=== PATIENT | male | born 1955 | race Caucasian/White ===

== ENCOUNTER 2020-01-27 16:29 | Inpatient (IN) | payer MEDICARE ==
[~2020-01-27] VITALS: Ht 170.2 cm; Wt 121.6 kg
[2020-01-27] VITALS (14 sets, daily range): BP systolic 119–151; BP diastolic 52–83; BMI 42.2
[2020-01-27] MEDS ORDERED: ULTRAM50 MG PO (16:45)
[2020-01-27] MEDS ORDERED: HYDROCODON-ACE1 EAC2 PO (16:45)
[2020-01-27] MEDS ORDERED: LIPITOR20 MG PO (16:45)
[2020-01-27] MEDS ORDERED: ZYLOPRIM300 MG PO (16:46)
[2020-01-27] MEDS ORDERED: NORVASC10 MG PO (16:46)
[2020-01-27] MEDS ORDERED: LISINOPRIL40 MG (16:46)
[2020-01-27] MEDS ORDERED: TOPROL XL25 MG (16:46)
[2020-01-27] MEDS ORDERED: FLOMAX0.4 MG PO (16:47)
[2020-01-27 16:54] LABS: BASOPHILS 0.6 % (0-2); EOSINOPHILS 3.2 % (0-7); HEMATOCRIT 47.3 % (42.0-54.0); HEMOGLOBIN 15.4 g/dL (13.5-17.5); IMMATURE GRANULOCYTES 0.8 % (0-5); LYMPHOCYTES 29.6 % (15-50); MCH 29.5 pg (26.0-34.0); MCHC 32.6 g/dL (31.0-37.0); MCV 90.6 fL (80.0-100.0); MEAN PLATELET VOLUME 9.2 fL (7.4-10.4); MONOCYTES 9.5 % (2-11); NEUTROPHILS 56.3 % (40-80); PLATELET COUNT 290 10x3/uL (130-400); RBC 5.22 10x6/uL (4.20-6.10); RDW 13.7 % (11.5-14.5); WBC 8.5 10x3/uL (4.8-10.8)
[2020-01-27 17:04] LABS: APTT 31.2 SECONDS (22.8-39.4); CALC OSMOLALITY 276 mosm/kg (275-300); CALCIUM 9.2 mg/dL (8.5-10.1); CARBON DIOXIDE 22.5 mmol/L (21.0-32.0); CHLORIDE - SERUM 103 mmol/L (98-107); CREATININE - SERUM 1.1 mg/dL (0.6-1.3); GLUCOSE 97 mg/dL (74-106); INR 0.97 (0.85-1.17); PROTIME 12.8 SECONDS (11.6-15.0); SODIUM 138 mmol/L (136-145); UREA NITROGEN 14 mg/dL (7-18); eGFR NON AFRICAN AMERICAN 72 mL/min (90-120)
[2020-01-27 17:19] LABS: ALBUMIN 3.9 g/dL (3.4-5.0); ALKALINE PHOSPHATASE 63 U/L (30-120); ALT (SGPT) 44 U/L (10-68); BILIRUBIN - TOTAL 0.42 mg/dL (0.2-1.3); CKMB 11.6 U/L (0.0-3.6); CREATINE KINASE 478 UL (21-232); PROTEIN - SERUM 7.5 g/dL (6.4-8.2)
[2020-01-27 17:28] LABS: TROPONIN-I < 0.017 ng/mL (0.000-0.060)
--- NOTE | 2020-01-27 19:12 | NUR ---
TELENEURO ONLINE AT 1723. TPA RECOMMENDED AT 1734. BOLUS GIVEN AT 1736 AND INFUSION STARTED AT 1738. SEE EMAR.
--- NOTE | 2020-01-27 19:30 | NUR ---
REC'D PT FROM ER PT AWAKE AND ALERT, STEADY GAIT, NO FACIAL DROOPING, SLIGHT LEFT HAND WEAKNESS NOTED. CALL LIGHT WITHIN REACH, WILL CONTINUE TO OBSERVE.
--- NOTE | 2020-01-27 21:00 | NUR ---
NEURO CHECKS COMPLETED. PT AWAKE AND ALERT, LEFT SIDED WEAKNESS IMPROVING, MONITORS ON AND WORKING, VITALS STABLE. CALL LIGHT WITHIN REACH, WILL CONTINUE TO OBSERVE.
--- NOTE | 2020-01-27 23:00 | NUR ---
PT LYING IN BED RESTING, MONITORS ON AND WORKING, PT UP TO BATHROOM WITH MINIMAL ASSIST. VITALS STABLE, LEFT HAND IMPROVING. SEE FLOW SHEET FOR FURTHER DETAILS. WILL CONTINUE TO OBSERVE.
[2020-01-28] VITALS (24 sets, daily range): BP systolic 122–169; BP diastolic 63–96; Ht 170.2 cm; Wt 121.6 kg
[2020-01-28 00:45] LABS: CKMB 12.5 U/L (0.0-3.6); CREATINE KINASE 425 UL (21-232); MAGNESIUM - SERUM 1.8 mg/dL (1.8-2.4); PHOSPHOROUS 4.1 mg/dL (2.5-4.9)
[2020-01-28 00:58] LABS: TROPONIN-I < 0.017 ng/mL (0.000-0.060)
--- NOTE | 2020-01-28 01:00 | NUR ---
PT LYING IN BED RESTING, MONITORS ON AND WORKING, PT AAO. NO SIGNS/SYMPTOMS PF PAIN OR DISCOMFORT NOTED. CALL LIGHT WITHIN REACH, WILL CONTINUE TO OBSERVE.
[2020-01-28 05:56] LABS: BASOPHILS 0.3 % (0-2); EOSINOPHILS 4.5 % (0-7); HEMATOCRIT 48.8 % (42.0-54.0); HEMOGLOBIN 15.7 g/dL (13.5-17.5); IMMATURE GRANULOCYTES 0.6 % (0-5); LYMPHOCYTES 12.7 % (15-50); MCH 29.8 pg (26.0-34.0); MCHC 32.2 g/dL (31.0-37.0); MEAN PLATELET VOLUME 9.2 fL (7.4-10.4); MONOCYTES 5.4 % (2-11); NEUTROPHILS 76.5 % (40-80); PLATELET COUNT 253 10x3/uL (130-400); RBC 5.26 10x6/uL (4.20-6.10); RDW 13.9 % (11.5-14.5)
[2020-01-28 06:09] LABS: APTT 30.3 SECONDS (22.8-39.4); INR 1.04 (0.85-1.17); PROTIME 13.5 SECONDS (11.6-15.0)
[2020-01-28 06:20] LABS: MCV 92.8 fL (80.0-100.0); WBC 6.3 10x3/uL (4.8-10.8)
[2020-01-28 06:42] LABS: ALBUMIN 3.3 g/dL (3.4-5.0); ALKALINE PHOSPHATASE 56 U/L (30-120); ALT (SGPT) 46 U/L (10-68); BILIRUBIN - TOTAL 0.75 mg/dL (0.2-1.3); CALC OSMOLALITY 278 mosm/kg (275-300); CALCIUM 8.4 mg/dL (8.5-10.1); CARBON DIOXIDE 25.5 mmol/L (21.0-32.0); CHLORIDE - SERUM 105 mmol/L (98-107); CHOL - HDL RATIO 3.7 ratio (2.3-4.9); CHOLESTEROL, TOTAL 114 mg/dL (0-200); CKMB 9.7 U/L (0.0-3.6); CREATINE KINASE 335 UL (21-232); GLUCOSE 117 mg/dL (74-106); HDL CHOLESTEROL 31 mg/dL (32-96); LDL CHOLESTEROL 51 mg/dL (0-100); LDL-HDL RATIO 1.6 ratio (1.5-3.5); POTASSIUM - SERUM 4.3 mmol/L (3.5-5.1); PRO BNP 41 pg/mL (0-125); PROTEIN - SERUM 6.6 g/dL (6.4-8.2); SODIUM 139 mmol/L (136-145); TRIGLYCERIDE 161 mg/dL (30-200); UREA NITROGEN 12 mg/dL (7-18)
[2020-01-28 06:43] LABS: CREATININE - SERUM 0.8 mg/dL (0.6-1.3); TROPONIN-I < 0.017 ng/mL (0.000-0.060); eGFR NON AFRICAN AMERICAN > 90 mL/min (90-120)
--- NOTE | 2020-01-28 07:00 | NUR ---
RECEIVED BEDSIDE REPORT ON PATIENT AND ASSUMED CARE OF PATIENT. VSS. PATIENT ALERT AND ORIENTED X 4, STATES LEFT SIDED WEAKNESS HAS RESOLVED EXCEPT FOR HIS LEFT THUMB AND 1ST DIGIT STILL FEEL WEEK, CERTIFIED PHLEBOTOMIST ARE EQUAL AND STRONG, NEURO EXAM COMPLETED. PATIENT HAD VOIDED IN BATHROOM GIVEN URINE COLLECTION BOTTLE TO OBTAIN URINE SPECIMEN. IV INFUSING TO RIGHT HAND NS AT 100 ML/HR WITH NO S/S OF INFILTRATION. HEAD TO TOE ASSESSMENT COMPLETED.
--- NOTE | 2020-01-28 08:41 | NUR ---
DR. READ PAGED TO NOTIFY OF CONSULT. PATIENT RESTING QUIETLY IN BED. VSS.
--- NOTE | 2020-01-28 09:02 | NUR ---
PATIENT UP TO RESTROOM, OBTAINED URINE SAMPLE AND SENT TO LAB. VSS. HAS DIFFICULTY HOLDING ITEMS IN HIS LEFT HAND DUE TO WEAKNESS IN THUMB AND FIRST FINGER.
--- NOTE | 2020-01-28 09:47 | NUR ---
SPOKE TO DR. PEREA, NEUROLOGIST REGARDING CONSULT FOR PATIENT. UPDATED AND ADVISDED HE WOULD SEE PATIENT. LIKELY TO START [place] TOMORROW AM.
--- NOTE | 2020-01-28 10:41 | NUR ---
REHAB PRESCREENING Rehab referral received and chart reviewed. This patient has [facility] as his insurance provider. PT and ST have been ordered. OT will need to be ordered as well. Rehab will begin prior authorization when evaluations have been completed. Thank you for this referral! Orin Mayers, VENDOR MANAGER Rehab PD
--- NOTE | 2020-01-28 11:00 | NUR ---
REASSESSMENT COMPLETED. VSS.
[2020-01-28 11:23] LABS: BILIRUBIN NEGATIVE (NEGATIVE); GLUCOSE NEGATIVE (NEGATIVE); KETONE NEGATIVE (NEGATIVE); NITRITE NEGATIVE (NEGATIVE); UROBILINOGEN NORMAL (NORMAL)
[2020-01-28 11:27] LABS: UDS - AMPHET NEGATIVE QUAL (NEGATIVE); UDS - BARB NEGATIVE QUAL (NEGATIVE); UDS - BENZO NEGATIVE QUAL (NEGATIVE); UDS - COCAINE NEGATIVE QUAL (NEGATIVE); UDS - OPIATE POSITIVE QUAL (NEGATIVE); UDS - PCP NEGATIVE QUAL (NEGATIVE); UDS - THC NEGATIVE QUAL (NEGATIVE)
--- NOTE | 2020-01-28 11:53 | NUR ---
REPORT GIVEN TO HALEIGH RN, TO TRANSFER TO ICU ROOM NUMBER [id number].
--- NOTE | 2020-01-28 11:57 | NUR ---
SPOKE TO DR. PAIGE REGARDING CONSULT. WILL SEE.
--- NOTE | 2020-01-28 13:31 | NUR ---
PATIENT TRANSFERRED TO ROOM 2306 VIA WHEELCHAIR. VSS.
[2020-01-29] VITALS (9 sets, daily range): BP systolic 123–158; BP diastolic 72–96
[2020-01-29 04:30] LABS: BASOPHILS 0.3 % (0-2); EOSINOPHILS 2.6 % (0-7); HEMATOCRIT 49.7 % (42.0-54.0); HEMOGLOBIN 15.7 g/dL (13.5-17.5); LYMPHOCYTES 15.3 % (15-50); MCH 29.3 pg (26.0-34.0); MCHC 31.6 g/dL (31.0-37.0); MCV 92.9 fL (80.0-100.0); MEAN PLATELET VOLUME 9.2 fL (7.4-10.4); MONOCYTES 9.3 % (2-11); NEUTROPHILS 71.5 % (40-80); PLATELET COUNT 252 10x3/uL (130-400); RBC 5.35 10x6/uL (4.20-6.10); RDW 13.5 % (11.5-14.5); WBC 6.8 10x3/uL (4.8-10.8)
[2020-01-29 04:37] LABS: CALC OSMOLALITY 280 mosm/kg (275-300); CALCIUM 8.6 mg/dL (8.5-10.1); CARBON DIOXIDE 29.2 mmol/L (21.0-32.0); CHLORIDE - SERUM 107 mmol/L (98-107); CREATININE - SERUM 0.7 mg/dL (0.6-1.3); GLUCOSE 116 mg/dL (74-106); MAGNESIUM - SERUM 2.1 mg/dL (1.8-2.4); PHOSPHOROUS 3.5 mg/dL (2.5-4.9); POTASSIUM - SERUM 4.1 mmol/L (3.5-5.1); SODIUM 141 mmol/L (136-145); UREA NITROGEN 9 mg/dL (7-18); eGFR NON AFRICAN AMERICAN > 90 mL/min (90-120)
--- NOTE | 2020-01-29 07:00 | NUR ---
REC'D REPORT AND RESUMED CARE, LSLEEPING AROUSABLE TO VERBAL STIMULI, VSS C/O PAIN 8/10 IN BACK, RPOSITIONED UP AND TO RIGHT SIDE, CALL LIGHT IN REACH, ASSESSMENT COMPLETED PER FLOWSHEET, WILL CONTINUE WITH POC
--- NOTE | 2020-01-29 07:45 | NUR ---
BREAKFAST TRAY TO BEDSIDE, INDEPENDENT WITH SET UP AND EATING
--- NOTE | 2020-01-29 09:00 | NUR ---
AM MEDS GIVEN AND TOLERATED WITHOUT DIFFICULTY
[2020-01-29] MEDS ORDERED: PROAIR HFA8.5 G1 INH (09:04)
[2020-01-29] MEDS ORDERED: IPRAT-ALBUT 0.5-3 ML UPD (09:05)
--- NOTE | 2020-01-29 10:05 | NUR ---
REPORT CALLED TO KAMILLE ON MED SURG FOR PENDING TRANSFER TO 2225
--- NOTE | 2020-01-29 13:21 | NUR ---
PT SITTING UP IN CHAIR AT BEDSIDE, STATED A DR CAME IN AND TOLD HIM HE WAS GOOD TO GO, PT WAS LAST SEEN BY DR PAIGE, ADVISED PT HE STLL NEEDS TO SEE DR FITZPATRICK WHO IS THE ADMITTING DR, PT THEN ASKED WHAT WOULD HAPPEN IF HE JUST LEAVES, TOLD PT THAT HE CAN NOT JUS LEAVE AND SHOULD HE LEAVE AMA THAN MOST LIKELY INSURANCE WILL NOT COVER STAY. PT VERBALIZED UNDERSTANDING AND ASKED ME TO SPEED UP PROCESS IF POSSIBLE, NO OTHER NEEDS VOICED, CONTINUE WITH PLAN OF CARE
--- NOTE | 2020-01-30 00:46 | NUR ---
PT RESTING IN BED. EYES CLOSED. NO SIGNS OF DISTRESS. BREATHING EVEN AND UNLABORED. IV SITES LT AND RT HAND DRESSING CLEAN DRY AND INTACT. NO SIGNS OF INFECTION OR INFULTRATION. LUNG SOUNDS CLEAR. BOWEL SOUNDS ACTIVE. SKIN CLEAN DRY. WILL CONTINUE PLAN OF CARE. CALL LGITH IN REACH. BED LOWERED AND LOCKED. BED RAILS UPX2.
[2020-01-30 04:00] VITALS: BP 136/57
--- NOTE | 2020-01-30 04:24 | NUR ---
I have reviewed this patient and I concur with the Shift Assessment completed by the Licensed Practical Nurse today this shift.
[2020-01-30 05:10] LABS: BASOPHILS 0.3 % (0-2); EOSINOPHILS 2.8 % (0-7); HEMATOCRIT 47.7 % (42.0-54.0); HEMOGLOBIN 15.2 g/dL (13.5-17.5); IMMATURE GRANULOCYTES 0.9 % (0-5); LYMPHOCYTES 16.5 % (15-50); MCH 29.3 pg (26.0-34.0); MCHC 31.9 g/dL (31.0-37.0); MCV 92.1 fL (80.0-100.0); MONOCYTES 9.3 % (2-11); NEUTROPHILS 70.2 % (40-80); PLATELET COUNT 245 10x3/uL (130-400); RBC 5.18 10x6/uL (4.20-6.10); RDW 13.6 % (11.5-14.5)
[2020-01-30 05:26] LABS: CALC OSMOLALITY 285 mosm/kg (275-300); CALCIUM 8.5 mg/dL (8.5-10.1); CARBON DIOXIDE 28.2 mmol/L (21.0-32.0); CHLORIDE - SERUM 109 mmol/L (98-107); CREATININE - SERUM 0.8 mg/dL (0.6-1.3); GLUCOSE 131 mg/dL (74-106); MAGNESIUM - SERUM 1.9 mg/dL (1.8-2.4); PHOSPHOROUS 3.6 mg/dL (2.5-4.9); POTASSIUM - SERUM 3.9 mmol/L (3.5-5.1); SODIUM 143 mmol/L (136-145); UREA NITROGEN 10 mg/dL (7-18); eGFR NON AFRICAN AMERICAN > 90 mL/min (90-120)
--- NOTE | 2020-01-30 07:33 | NUR ---
ALERT AND ORIENTED. LUNGS CLEAR BILATERALLY. HEART SOUNDS S1 AND S2 HEARD IN ALL KWAN. BOWEL SOUNDS ACTIVE X 4. SKIN INTACT WITHOUT REDNESS. IV TO RIGHT HAND PATENT WITHOUT REDNESS. O2 IN PLACE AT 2L NC. DENIES NEEDS. CALL LANGSTON AND PERSONAL ITEMS IN REACH. WILL CONTINUE TO MONITOR.
[2020-01-30 09:28] VITALS: BP 139/88
[2020-01-30] MEDS ORDERED: PLAVIX75 MG PO (10:54)
[2020-01-30] MEDS ORDERED: ASPIRIN325 MG PO (10:55)
[2020-01-30] MEDS ORDERED: ZOCOR20 MG PO (10:57)
--- NOTE | 2020-01-30 11:33 | MORECARE ---
CASE MANAGEMENT DISCHARGE SUMMARY PATIENT: MOHIT COHN UNIT: [id number] ADM DATE: 01/27/20 AGE: 65 : 56 SEX: M ROOM/BED: D.2223 AUTHOR: KATHRYN BURNETT PHYSICIAN: REFERRING PHYSICIAN: ANKITA JUAN MD DATE OF SERVICE: 01/30/20 Discharge Plan Patient Name: MOHIT COHN Facility: [facility]:[place] : 1955 Planned Disposition: Anticipated Discharge Date: Discharge Date: Expected LOS: Initial Reviewer: [email or web address] Initial Review Date: 01/30/2020 Generated: 01/30/20 12:33 pm Patient Name: MOHIT COHN Page [id number] at 1133 All edits/amendments must be made on the electronic document DICTATION DATE: 01/30/20 1133 MOLDER SWEEP: ESTEPHANIA 01/30/20 1133 RPT#: [id number] DC DATE: STATUS: ADM IN [facility] [address] [place] [address] END OF REPORT
--- NOTE | 2020-01-30 11:40 | MORECARE ---
CASE MANAGEMENT DISCHARGE SUMMARY PATIENT: MOHIT COHN UNIT: [id number] ADM DATE: 01/27/20 AGE: 65 : 56 SEX: M ROOM/BED: D.2223 AUTHOR: KATHRYN BURNETT PHYSICIAN: REFERRING PHYSICIAN: ANKITA JUAN MD DATE OF SERVICE: 01/30/20 Discharge Plan Patient Name: MOHIT COHN Facility: [facility]:[place] : 1955 Planned Disposition: Anticipated Discharge Date: Discharge Date: Expected LOS: Initial Reviewer: [email or web address] Initial Review Date: 01/30/2020 Generated: 01/30/20 12:40 pm Comments DCP- Discharge Planning Updated by [email or web address]: Michelle Roa on 01/30/20 10:[address] Patient Name: MOHIT COHN Admission Status: ER Accout number: [id number] Admission Date: 01-27-2020 : 1955 Admission Diagnosis:CEREBRAL INFARCTION, UNSPECIFIED Attending: ANKITA JUAN Current LOS: 3 Anticipated DC Date: Planned Disposition: Primary Insurance: [facility] MEDICARE SOLUTIONS Discharge Planning Comments: CM met with patient at bedside after explaining CM role and obtaining verbal consent. CM discussed availability / needs of home health, REHAB and medical equipment.DOES NOT WANT HH, REHAB ETC. PATIENT IS CALLING HIS RIDE TO GO HOME. CM TO FOLLOW AND ASSIST. Nuclear Equipment Sales Engineer: Michelle William DP export: 01/30/20 10:33 am Patient Name: MOHIT COHN Page [id number] at 1140 All edits/amendments must be made on the electronic document DICTATION DATE: 01/30/20 1140 DISTRIBUTION TECHNICIAN: ESTEPHANIA 01/30/20 1140 RPT#: [id number] DC DATE: STATUS: ADM IN [facility] [address] [place] [address] END OF REPORT
--- NOTE | 2020-01-30 11:56 | NUR ---
DISCHARGE EDUCATION PROVIDED BOTH WRITTEN AND VERBAL. VERBALIZED UNDERSTANDING. DENIES FURTHER QUETIONS. IV REMOVED FROM LEFT HAND WITH TIP INTACT. PATIENT DC HOME WITH ALL BELONGINGS.
--- NOTE | 2020-01-30 14:12 | NUR ---
OT NOTE: PT DOING BETTER THEN WHEN LAST SEEN IN CVICU. PTS BALANCE IS GOOD; GROSS AND FINE MOTOR COORDINATION, ALONG WITH BUSINESS INTELLIGENCE ANALYST STRENGHT HAVE IMPROVE. PT CONT TO HAVE SOME NUMBNESS IN L THUMB/INDEX, HOWEVER, TODAY, PT REPORTS THAT THIS IS LONG STANDING FROM A SHOULDER SURGERY FROM APPROX 30 YRS AGO. PT INSTRUCTED TO CONT WITH FINE MOTOR AND FUNCTIONAL TASKS WITH L HAND (NON DOMINANT HAND) FLAKITO LOPEZ, OTR/L [phone]
--- NOTE | 2020-01-31 10:39 | MORECARE ---
CASE MANAGEMENT DISCHARGE SUMMARY PATIENT: MOHIT COHN UNIT: [id number] ADM DATE: 01/27/20 AGE: 65 : 57 SEX: M ROOM/BED: D.2223 AUTHOR: KATHRYN BURNETT PHYSICIAN: REFERRING PHYSICIAN: ANKITA JUAN MD DATE OF SERVICE: 01/31/20 Discharge Plan Patient Name: MOHIT COHN Facility: [facility]:[place] : 1955 Planned Disposition: Anticipated Discharge Date: Discharge Date: 01/30/2020 Expected LOS: 0 Initial Reviewer: [email or web address] Initial Review Date: 01/30/2020 Generated: 01/31/20 11:38 am Comments DCP- Discharge Planning Updated by [email or web address]: Michelle Roa on 01/30/20 10:[address] Patient Name: MOHIT COHN Admission Status: ER Accout number: [id number] Admission Date: 01-27-2020 : 1955 Admission Diagnosis:CEREBRAL INFARCTION, UNSPECIFIED Attending: ANKITA JUAN Current LOS: 3 Anticipated DC Date: Planned Disposition: Primary Insurance: [employer] MEDICARE SOLUTIONS Discharge Planning Comments: CM met with patient at bedside after explaining CM role and obtaining verbal consent. CM discussed availability / needs of home health, REHAB and medical equipment.DOES NOT WANT HH, REHAB ETC. PATIENT IS CALLING HIS RIDE TO GO HOME. CM TO FOLLOW AND ASSIST. Director Nursery School: Michelle Roa Last DP export: 01/30/20 10:40 am Patient Name: MOHIT COHN Page [id number] at 1039 All edits/amendments must be made on the electronic document DICTATION DATE: 01/31/20 1038 MACHINE PULLER: ESTEPHANIA 01/31/20 1038 RPT#: [id number] DC DATE:01/30/20 STATUS: DIS IN [facility] [address] [place] [address] END OF REPORT
== END 2020-01-30 11:58 | disposition home or self-care (01) | DRG 61 ==
LOC: D.ER 16:29 → D.CVICU 19:20 → D.MS 19:20 → D.ICU 19:20 → D.MS 01-29 10:35
PROVIDERS: Family Medicine; ADMIT Internal Medicine Nephrology; ATTEND Internal Medicine Nephrology
DX: I63.9 Cerebral infarction, unspecified (principal); G93.5 Compression of brain; F17.203 Nicotine dependence unspecified, with withdrawal; G81.94 Hemiplegia, unspecified affecting left nondominant side; Z68.41 Body mass index [BMI] 40.0-44.9, adult; J44.9 Chronic obstructive pulmonary disease, unspecified; E11.9 Type 2 diabetes mellitus without complications; I10 Essential (primary) hypertension; E78.5 Hyperlipidemia, unspecified; N40.0 Benign prostatic hyperplasia without lower urinary tract symptoms; G89.29 Other chronic pain; M54.9 Dorsalgia, unspecified; E66.01 Morbid (severe) obesity due to excess calories

== ENCOUNTER 2020-12-16 15:45 | Inpatient (IN) | payer MEDICARE ==
[~2020-12-16] VITALS: Ht 170.2 cm; Wt 110.7 kg
[~2020-12-16 15:45] MED LIST: ASPIRIN325 MG PO; FLOMAX0.4 MG PO; HYDROCODON-ACE1 EAC2 PO; IPRAT-ALBUT 0.5-3 ML UPD; LIPITOR20 MG PO; LISINOPRIL40 MG; NORVASC10 MG PO; PLAVIX75 MG PO; PROAIR HFA8.5 G1 INH; TOPROL XL25 MG; ULTRAM50 MG PO; ZOCOR20 MG PO; ZYLOPRIM300 MG PO
--- NOTE | 2020-12-16 15:45 | NUR ---
PATIENT ARRIVES TO E11 VIA STRETCHER PER EMS. SALINE LOCK INTACT TO LEFT HAND PER EMS. MONITORS ATTACHED. ORIENTED TO CALL LIGHT/TV CONTROLS.
--- NOTE | 2020-12-16 16:15 | NUR ---
PATIENT REQUESTING PAIN MEDICATION FOR BACK PAIN. STATES PARTIALLY FROM CHRONIC PAIN, PARTIALLY FROM SOB. TAKES NORCO 7.5MG AT HOME.
[2020-12-16 16:31] LABS: BASOPHILS 0.5 % (0-2); EOSINOPHILS 0.5 % (0-7); HEMATOCRIT 33.7 % (42.0-54.0); HEMOGLOBIN 10.1 g/dL (13.5-17.5); IMMATURE GRANULOCYTES 0.6 % (0-5); LYMPHOCYTE ABS# 1.25 10x3/uL (1.32-3.57); MCH 22.7 pg (26.0-34.0); MCV 75.7 fL (80.0-100.0); MEAN PLATELET VOLUME 8.2 fL (7.4-10.4); MONOCYTES 10.6 % (2-11); NEUTROPHIL ABS# 7.19 10x3/uL (1.78-5.38); NEUTROPHILS 74.8 % (40-80); RBC 4.45 10x6/uL (4.20-6.10); WBC 9.6 10x3/uL (4.8-10.8)
[2020-12-16 16:32] LABS: PLATELET COUNT 407 10x3/uL (130-400)
--- NOTE | 2020-12-16 16:35 | NUR ---
URINAL GIVEN TO OBTAIN URINE SPECIMEN.
--- NOTE | 2020-12-16 16:40 | NUR ---
AGAIN ASKING FOR PAIN MEDICATION FOR BACK PAIN. REPORTS PAIN IS 5/[address] LINO INFORMED OF PAIN.
[2020-12-16 16:41] LABS: CALC OSMOLALITY 275 mosm/kg (275-300); CALCIUM 8.8 mg/dL (8.5-10.1); CHLORIDE - SERUM 104 mmol/L (98-107); GLUCOSE 155 mg/dL (74-106); POTASSIUM - SERUM 4.5 mmol/L (3.5-5.1); SODIUM 135 mmol/L (136-145); UREA NITROGEN 20 mg/dL (7-18); eGFR NON AFRICAN AMERICAN 80 mL/min (90-120)
[2020-12-16 16:51] LABS: APTT 22.5 SECONDS (22.8-39.4); INR 1.1 (0.85-1.17); PROTIME 13.1 SECONDS (11.6-15.0)
[2020-12-16 16:58] LABS: ALBUMIN 3.3 g/dL (3.4-5.0); ALKALINE PHOSPHATASE 57 U/L (30-120); ALT (SGPT) 33 U/L (10-68); BILIRUBIN - TOTAL 0.23 mg/dL (0.2-1.3); CKMB 21.8 U/L (0.0-3.6); CREATINE KINASE 501 UL (21-232); PRO BNP 116 pg/mL (0-125); PROTEIN - SERUM 7.3 g/dL (6.4-8.2)
[2020-12-16 16:59] LABS: TROPONIN-I < 0.017 ng/mL (0.000-0.060)
--- NOTE | 2020-12-16 17:10 | NUR ---
PATIENT STATES HE IS UNABLE TO VOID AT THIS TIME. DR. LINO TO BEDSIDE.
--- NOTE | 2020-12-16 18:31 | NUR ---
COVID SWAB OBTAINED.
[2020-12-16 19:00] VITALS: BP 145/86
[2020-12-16 19:05] LABS: SARS-CoV-2 ANTIGEN NEGATIVE- SARS-COV-2 (NEGATIVE)
[2020-12-16 20:47] VITALS: BP 144/79
[2020-12-16 21:30] VITALS: BP 140/87
--- NOTE | 2020-12-16 22:01 | NUR ---
RECEIVED REPORT FROM ER. EXPECTING PT IN ROOM 2130 SHORTLY. ER NURSE REPORTS NO DISTRESS, 4L O2 THAT PT WILL TAKE OFF SOMETIMES. PT WILL BE PUI.
[2020-12-16 22:10] LABS: BILIRUBIN NEGATIVE (NEGATIVE); KETONE NEGATIVE (NEGATIVE); NITRITE NEGATIVE (NEGATIVE); UROBILINOGEN NORMAL mg/dL (< 2)
[2020-12-16 22:20] LABS: UDS - AMPHET NEGATIVE QUAL (NEGATIVE); UDS - BARB NEGATIVE QUAL (NEGATIVE); UDS - BENZO NEGATIVE QUAL (NEGATIVE); UDS - COCAINE NEGATIVE QUAL (NEGATIVE); UDS - OPIATE NEGATIVE QUAL (NEGATIVE); UDS - PCP NEGATIVE QUAL (NEGATIVE); UDS - THC NEGATIVE QUAL (NEGATIVE)
[2020-12-16 22:33] VITALS: BP 157/74
[2020-12-17 04:00] VITALS: BP 141/86
--- NOTE | 2020-12-17 05:28 | NUR ---
PT HAD A BOWEL MOVEMENT, A SAMPLE WAS COLLECTED PER ORDERS FOR OCCULT STOOL. STOOL WAS BLACK AND FORMED.
[2020-12-17 05:35] LABS: BASOPHILS 0.2 % (0-2); EOSINOPHILS 0 % (0-7); HEMOGLOBIN 8.6 g/dL (13.5-17.5); IMMATURE GRANULOCYTES 0.4 % (0-5); LYMPHOCYTE ABS# 0.47 10x3/uL (1.32-3.57); MCH 22.7 pg (26.0-34.0); MCHC 29.7 g/dL (31.0-37.0); MCV 76.5 fL (80.0-100.0); MEAN PLATELET VOLUME 8.1 fL (7.4-10.4); MONOCYTES 0.6 % (2-11); NEUTROPHILS 93.8 % (40-80); PLATELET COUNT 401 10x3/uL (130-400); RBC 3.79 10x6/uL (4.20-6.10); RDW 16.8 % (11.5-14.5); RETIC 1.98 % (0.45-2.28); WBC 9.4 10x3/uL (4.8-10.8)
[2020-12-17 05:58] LABS: % SATURATION 10 % (15-55); IRON 42 ug/dl (35-150); TOTAL IRON BIND CAPACITY 385 ug/dl (260-445); UNSAT IRON BIND CAPACITY 343 ug/dl (150-375)
[2020-12-17 06:27] LABS: ALKALINE PHOSPHATASE 50 U/L (30-120); ALT (SGPT) 29 U/L (10-68); BILIRUBIN - TOTAL 0.15 mg/dL (0.2-1.3); CALCIUM 8.2 mg/dL (8.5-10.1); CARBON DIOXIDE 23.4 mmol/L (21.0-32.0); CHLORIDE - SERUM 104 mmol/L (98-107); CKMB 15.7 U/L (0.0-3.6); CREATININE - SERUM 0.9 mg/dL (0.6-1.3); FERRITIN 14 ng/mL (3-244); MAGNESIUM - SERUM 2.1 mg/dL (1.8-2.4); POTASSIUM - SERUM 4.8 mmol/L (3.5-5.1); PROTEIN - SERUM 6.7 g/dL (6.4-8.2); SODIUM 134 mmol/L (136-145); TROPONIN-I < 0.017 ng/mL (0.000-0.060); eGFR NON AFRICAN AMERICAN 90 mL/min (90-120)
[2020-12-17 06:29] LABS: CALC OSMOLALITY 279 mosm/kg (275-300); CREATINE KINASE 340 UL (21-232); GLUCOSE 208 mg/dL (74-106); UREA NITROGEN 29 mg/dL (7-18)
[2020-12-17 09:57] VITALS: BP 162/87
[2020-12-17 13:03] VITALS: BMI 38.2
[2020-12-17 17:28] VITALS: BP 142/83
[2020-12-17 20:27] VITALS: BP 152/79
--- NOTE | 2020-12-17 22:10 | NUR ---
LEFT PIV INFILTRATED NEW PIV PLACED RIGHT FA/AC BY ANOTHER NURSE . PT DENIES ANY NEEDS NO ACUTE DISTRESS WILL CONTINUE TO MONITOR NPO AFTER MN FOR PROCEDURE TOMORROW PT AWARE
[2020-12-18 05:53] LABS: BASOPHILS 0.1 % (0-2); EOSINOPHILS 0 % (0-7); HEMATOCRIT 26.8 % (42.0-54.0); HEMOGLOBIN 7.9 g/dL (13.5-17.5); IMMATURE GRANULOCYTES 0.8 % (0-5); LYMPHOCYTE ABS# 0.66 10x3/uL (1.32-3.57); LYMPHOCYTES 3.5 % (15-50); MCH 22.7 pg (26.0-34.0); MCHC 29.5 g/dL (31.0-37.0); MEAN PLATELET VOLUME 8.4 fL (7.4-10.4); MONOCYTES 2.8 % (2-11); NEUTROPHIL ABS# 17.56 10x3/uL (1.78-5.38); NEUTROPHILS 92.8 % (40-80); PLATELET COUNT 450 10x3/uL (130-400); RBC 3.48 10x6/uL (4.20-6.10); RDW 17.1 % (11.5-14.5)
[2020-12-18 06:20] LABS: WBC 18.9 10x3/uL (4.8-10.8)
[2020-12-18 06:21] LABS: ALBUMIN 2.9 g/dL (3.4-5.0); ALKALINE PHOSPHATASE 47 U/L (30-120); ALT (SGPT) 28 U/L (10-68); BILIRUBIN - TOTAL 0.23 mg/dL (0.2-1.3); CALCIUM 8.4 mg/dL (8.5-10.1); CARBON DIOXIDE 26.3 mmol/L (21.0-32.0); CHLORIDE - SERUM 104 mmol/L (98-107); CREATININE - SERUM 0.9 mg/dL (0.6-1.3); MAGNESIUM - SERUM 2.3 mg/dL (1.8-2.4); POTASSIUM - SERUM 4.7 mmol/L (3.5-5.1); PROTEIN - SERUM 6.5 g/dL (6.4-8.2); SODIUM 135 mmol/L (136-145); eGFR NON AFRICAN AMERICAN 90 mL/min (90-120)
[2020-12-18 06:22] LABS: CALC OSMOLALITY 273 mosm/kg (275-300); GLUCOSE 141 mg/dL (74-106); UREA NITROGEN 17 mg/dL (7-18)
--- NOTE | 2020-12-18 07:30 | NUR ---
PT RESTING IN BED. RESP EVEN AND UNLABORED. NC [address] AAOX4[address] PT DENIES ANY NEEDS AT THIS TIME. CLIR. BED IN LOWEST POSITION. SIDE RAILS X2
[2020-12-18 07:59] VITALS: BP 119/71
--- NOTE | 2020-12-18 10:45 | NUR ---
PT LEFT UNIT FOR BRONCHOSCOPY VIA BED ACCOMPANIED BY HOSPITAL STAFF
[2020-12-18 12:31] VITALS: BP 147/87
--- NOTE | 2020-12-18 12:53 | NUR ---
PT RETURNED TO UNIT FROM BROCHOSCOPY ACCOMPANIED BY HOSPITAL STAFF. PT AAOX4. VS WNL.
--- NOTE | 2020-12-18 18:00 | NUR ---
I have reviewed this patient and I concur with the Shift Assessment completed by the Licensed Practical Nurse today this shift.
--- NOTE | 2020-12-18 18:55 | NUR ---
PT LYING IN BED, APPAEARS ASLEEP BREATHING EVENLY, SNORING AT TIMES NO DISTRESS NOTED WILL CONTINUE TO MONITOR
[2020-12-18 20:29] VITALS: BP 111/56
[2020-12-19 00:46] VITALS: BP 127/68
[2020-12-19 05:53] VITALS: BP 124/49
[2020-12-19 06:01] LABS: BASOPHILS 0 % (0-2); EOSINOPHILS 0 % (0-7); IMMATURE GRANULOCYTES 0.9 % (0-5); LYMPHOCYTE ABS# 0.73 10x3/uL (1.32-3.57); LYMPHOCYTES 4.8 % (15-50); MCH 22.5 pg (26.0-34.0); MCHC 28.8 g/dL (31.0-37.0); MCV 78.1 fL (80.0-100.0); MEAN PLATELET VOLUME 8.3 fL (7.4-10.4); NEUTROPHIL ABS# 13.79 10x3/uL (1.78-5.38); NEUTROPHILS 90.3 % (40-80); PLATELET COUNT 414 10x3/uL (130-400); RDW 17.2 % (11.5-14.5); WBC 15.3 10x3/uL (4.8-10.8)
[2020-12-19 06:12] LABS: HEMOGLOBIN 7.2 g/dL (13.5-17.5)
[2020-12-19 06:17] LABS: ALBUMIN 2.9 g/dL (3.4-5.0); ALKALINE PHOSPHATASE 43 U/L (30-120); ALT (SGPT) 33 U/L (10-68); BILIRUBIN - TOTAL 0.14 mg/dL (0.2-1.3); CALC OSMOLALITY 280 mosm/kg (275-300); CARBON DIOXIDE 28.3 mmol/L (21.0-32.0); CHLORIDE - SERUM 105 mmol/L (98-107); CREATININE - SERUM 0.9 mg/dL (0.6-1.3); GLUCOSE 125 mg/dL (74-106); MAGNESIUM - SERUM 2.2 mg/dL (1.8-2.4); POTASSIUM - SERUM 5.2 mmol/L (3.5-5.1); SODIUM 139 mmol/L (136-145); UREA NITROGEN 18 mg/dL (7-18); eGFR NON AFRICAN AMERICAN 90 mL/min (90-120)
--- NOTE | 2020-12-19 09:15 | NUR ---
IN BED AROUSES TO VOICE. DENIES NEEDS AT THIS TIME. BED LOW POSITION, CALL LIGHT IN REACH. FIRST BAG OF BLOOD STARTED. 15 MINUTE WATCH PERIOD COMPLETE. WILL CONTINUE TO MONITOR.
[2020-12-19 12:32] VITALS: BP 148/84
--- NOTE | 2020-12-19 19:00 | NUR ---
PT SITTING ON THE SIDE OF BED PRBC INFUSING, DENIES NEEDS NO DISTRESS NOTED WILL CONTINUE TO MONITOR
[2020-12-19 20:30] VITALS: BP 140/75
[2020-12-20 00:30] VITALS: BP 132/68
[2020-12-20 04:30] VITALS: BP 143/81
--- NOTE | 2020-12-20 07:00 | NUR ---
RECEIVED REPORT. ASSUMED CARE OF PATIENT. PATIENT REMAINS IN ISOLATION FOR PUI. LAB AT BEDSIDE FOR AM LAB DRAW. CALL LIGHT WITHIN REACH. NO DISTRESS.
[2020-12-20 07:25] LABS: ALBUMIN 3.1 g/dL (3.4-5.0); ALKALINE PHOSPHATASE 49 U/L (30-120); ALT (SGPT) 36 U/L (10-68); BILIRUBIN - TOTAL 0.58 mg/dL (0.2-1.3); CALC OSMOLALITY 277 mosm/kg (275-300); CALCIUM 8.3 mg/dL (8.5-10.1); CARBON DIOXIDE 31.3 mmol/L (21.0-32.0); CHLORIDE - SERUM 101 mmol/L (98-107); CREATININE - SERUM 0.9 mg/dL (0.6-1.3); GLUCOSE 127 mg/dL (74-106); MAGNESIUM - SERUM 2.2 mg/dL (1.8-2.4); POTASSIUM - SERUM 4.6 mmol/L (3.5-5.1); PROTEIN - SERUM 6.2 g/dL (6.4-8.2); SODIUM 137 mmol/L (136-145); UREA NITROGEN 17 mg/dL (7-18); eGFR NON AFRICAN AMERICAN 90 mL/min (90-120)
[2020-12-20 07:29] LABS: BASOPHILS 0.1 % (0-2); EOSINOPHILS 0.1 % (0-7); IMMATURE GRANULOCYTES 3.3 % (0-5); LYMPHOCYTE ABS# 1.02 10x3/uL (1.32-3.57); LYMPHOCYTES 7.2 % (15-50); MCH 24.1 pg (26.0-34.0); MCHC 30.6 g/dL (31.0-37.0); MCV 78.9 fL (80.0-100.0); MEAN PLATELET VOLUME 8.3 fL (7.4-10.4); MONOCYTES 7.2 % (2-11); NEUTROPHIL ABS# 11.56 10x3/uL (1.78-5.38); NEUTROPHILS 82.1 % (40-80); PLATELET COUNT 398 10x3/uL (130-400); RDW 16.8 % (11.5-14.5); WBC 14.1 10x3/uL (4.8-10.8)
[2020-12-20 07:31] LABS: HEMATOCRIT 31.4 % (42.0-54.0); HEMOGLOBIN 9.6 g/dL (13.5-17.5); RBC 3.98 10x6/uL (4.20-6.10)
[2020-12-20 08:26] VITALS: BP 126/95
--- NOTE | 2020-12-20 09:45 | NUR ---
INCENTIVE SPIROMETRY ENCOURAGED. PATIENT ABLE TO TOLERATE IS WELL, DEMONSTRATED 750ML AT BEDSIDE.
--- NOTE | 2020-12-20 12:12 | NUR ---
FSBS 187. 2 UNITS HUMULIN ADMINISTERED PER SLIDING SCALE.
--- NOTE | 2020-12-20 12:12 | NUR ---
CALLED AND SPOKE WITH KEITH IN LAB, INQUIRED ABOUT PCR PENDING, REPORTED TO THIS NURSE THAT PATIENT IS NEGATIVE. AND PHIL LEMONS AT PATIENT ROOM FOR ROUNDS, BOTH INFORMED THAT PATIENT IS NEGATIVE PCR. ISOLATION REMOVED. PATIENT MADE AWARE.
--- NOTE | 2020-12-20 14:57 | NUR ---
RESTING WELL, NO DISTRESS. CALL LIGHT WITHIN REACH.
[2020-12-20 16:16] VITALS: BP 170/94
--- NOTE | 2020-12-20 17:30 | NUR ---
20 GAUGE IV PLACED TO LEFT HAND X 1 STICK. GOOD BLOOD RETURN, EASY FLUSH. TAPED, DATED AND SECURED. PATIENT REMOVED 20 GAUGE IV TO LEFT AC AREA. FOUND IV CATHETER IN TRASH AT BEDSIDE. CATHETER TIP INTACT. NO DISTRESS.
[2020-12-20 20:00] VITALS: BP 146/80
--- NOTE | 2020-12-20 22:30 | NUR ---
INITIAL ROUNDS COMPLETED AT 1915 HRS. PT RESTING WITH EYES CLOSED. RESP EVEN AND REGULAR. ASSESSMENT COMPLETED AT 1950 HRS. SR PER CM HR 82. ALERT AND OREINTED TO PERSON,PLACE AND TIME. DOBBINS. PALPABLE PERIPHERAL PULSES. LUNGS DIMINISHED IN BASES BILAT. IV TO L HAND SL. PM FSBS 250. INSULIN GIVEN PER S/S. PM MEDS GIVEN. PT CURRENTLY RESTING WITH EYES CLOSED. RESP EVEN AND REGULAR. SR UP X1,CALL LIGHT WITHIN REACH.
--- NOTE | 2020-12-21 00:03 | NUR ---
PT RESTING WITH EYES CLOSED. RESP EVEN AND REGULAR. CALL LIGHT WITHINJ REACH.
--- NOTE | 2020-12-21 02:58 | NUR ---
PT RESTING WITH EYES CLOSED. RESP EVEN AND REGULAR. CALL LIGHT WITHIN REACH.
[2020-12-21 04:00] VITALS: BP 129/84
--- NOTE | 2020-12-21 04:18 | NUR ---
PT RESTING WITH EYES CLOSED. RESP EVEN AND REGULAR. CALL LIGHT WITHIN REACH.
--- NOTE | 2020-12-21 06:28 | NUR ---
VSS THROUGHOUT NIGHT. SR PER CM. PT DENIED ANY DISOCMFORT. AM FSBS 185. 2 UNITS INSULIN GIVEN SUB-Q TO UPPER R ARM PER S/S. NEEDS MET; WILL CONTINUE TO MONITOR.
--- NOTE | 2020-12-21 07:08 | NUR ---
RECEIVED REPORT. ASSUMED CARE OF PATIENT. CALL LIGHT WITHIN REACH. PATIENT RESTING WITH EYES CLOSED, SNORING. BEDSIDE SHIFT REPORT COMPLETE, WHITE BOARD UPDATED. NO DISTRESS.
[2020-12-21 07:10] LABS: BASOPHILS 0.2 % (0-2); EOSINOPHILS 0 % (0-7); HEMATOCRIT 33.2 % (42.0-54.0); IMMATURE GRANULOCYTES 3.5 % (0-5); LYMPHOCYTE ABS# 1.13 10x3/uL (1.32-3.57); LYMPHOCYTES 7.1 % (15-50); MCH 23.9 pg (26.0-34.0); MCHC 30.1 g/dL (31.0-37.0); MCV 79.2 fL (80.0-100.0); MEAN PLATELET VOLUME 8.5 fL (7.4-10.4); MONOCYTES 6.4 % (2-11); NEUTROPHIL ABS# 13.14 10x3/uL (1.78-5.38); NEUTROPHILS 82.8 % (40-80); PLATELET COUNT 448 10x3/uL (130-400); RBC 4.19 10x6/uL (4.20-6.10); RDW 17.2 % (11.5-14.5); WBC 15.9 10x3/uL (4.8-10.8)
[2020-12-21 07:29] LABS: ALBUMIN 3.1 g/dL (3.4-5.0); ALKALINE PHOSPHATASE 52 U/L (30-120); ALT (SGPT) 43 U/L (10-68); BILIRUBIN - TOTAL 0.28 mg/dL (0.2-1.3); CALC OSMOLALITY 277 mosm/kg (275-300); CALCIUM 8.7 mg/dL (8.5-10.1); CARBON DIOXIDE 30.3 mmol/L (21.0-32.0); CHLORIDE - SERUM 101 mmol/L (98-107); CREATININE - SERUM 0.9 mg/dL (0.6-1.3); GLUCOSE 141 mg/dL (74-106); MAGNESIUM - SERUM 2.6 mg/dL (1.8-2.4); POTASSIUM - SERUM 4.3 mmol/L (3.5-5.1); PROTEIN - SERUM 6.7 g/dL (6.4-8.2); SODIUM 137 mmol/L (136-145); UREA NITROGEN 17 mg/dL (7-18); eGFR NON AFRICAN AMERICAN 90 mL/min (90-120)
[2020-12-21 08:14] VITALS: BP 145/83
--- NOTE | 2020-12-21 08:54 | NUR ---
20 GAUGE IV TO LEFT HAND INFILTRATED DURING FLUSH. CATHETER REMOVED. CATHETER TIP INTACT. NO BLEEDING FROM IV SITE. PATIENT TOLERATED IV REMOVAL WELL. PATIENT OOB TO SHOWER NOW.
--- NOTE | 2020-12-21 08:54 | NUR ---
MEDICATED FOR BACK PAIN AT THIS TIME.
--- NOTE | 2020-12-21 10:29 | NUR ---
20 GAUGE IV PLACED TO RIGHT HAND X 1 STICK. GOOD BLOOD RETURN, EASY FLUSH. PATIENT TOLERATED IV PLACEMENT WELL. TAPED, DATED, AND SECURED. RECEIVING IV ABX ORDERED AT THIS TIME.
--- NOTE | 2020-12-21 11:16 | NUR ---
FSBS 139. NO INSULIN PER SLIDING SCALE.
[2020-12-21 12:58] VITALS: BP 163/76
--- NOTE | 2020-12-21 13:25 | NUR ---
Nutrition Follow-up: S/p bronch, bronchoalveolar lavage, transbronchial bx on 12/18. Eating well. Ate 100% this AM. Diet: Cardiac PO intake: 100% x 4 No new wt; last wt: 244# (12/17) Labs noted: Glu 141, Mg 2.6, Alb 3.1 Meds noted: Solumedrol, Humulin, Florajen, Protonix, electrolyte protocol -Change to cardiac carb consistent diet. -RD will follow up within 7 days if pt still admitted.
--- NOTE | 2020-12-21 16:04 | NUR ---
FSBS 151. 2 UNITS HUMULIN ADMINISTERED PER SLIDING SCALE.
--- NOTE | 2020-12-21 18:55 | NUR ---
bedside shift report complete, pt noted lying in bed appears asleep no distress noted, will continue to monitor
[2020-12-21 20:00] VITALS: BP 151/78
[2020-12-22 04:00] VITALS: BP 155/71
--- NOTE | 2020-12-22 07:15 | NUR ---
pt laying in bed sleeping, no distress noted at this time, call light in reach, will monitor
[2020-12-22 08:15] VITALS: BP 150/93
[2020-12-22 09:40] LABS: ALBUMIN 2.9 g/dL (3.4-5.0); ALKALINE PHOSPHATASE 47 U/L (30-120); ALT (SGPT) 43 U/L (10-68); BILIRUBIN - TOTAL 0.31 mg/dL (0.2-1.3); CALC OSMOLALITY 277 mosm/kg (275-300); CALCIUM 8.5 mg/dL (8.5-10.1); CARBON DIOXIDE 30.6 mmol/L (21.0-32.0); CHLORIDE - SERUM 102 mmol/L (98-107); GLUCOSE 98 mg/dL (74-106); POTASSIUM - SERUM 4.2 mmol/L (3.5-5.1); PROTEIN - SERUM 6.3 g/dL (6.4-8.2); SODIUM 138 mmol/L (136-145); UREA NITROGEN 17 mg/dL (7-18); eGFR NON AFRICAN AMERICAN 80 mL/min (90-120)
[2020-12-22 10:34] LABS: HEMOGLOBIN 9.7 g/dL (13.5-17.5); LYMPHOCYTE ABS# 1.89 10x3/uL (1.32-3.57); MCH 24.3 pg (26.0-34.0); MCHC 30.3 g/dL (31.0-37.0); MEAN PLATELET VOLUME 8.3 fL (7.4-10.4); NEUTROPHIL ABS# 10.95 10x3/uL (1.78-5.38); PLATELET COUNT 427 10x3/uL (130-400); RDW 17.9 % (11.5-14.5); WBC 14.9 10x3/uL (4.8-10.8)
--- NOTE | 2020-12-22 11:30 | NUR ---
laying in bed watching tv, no needs voiced, call light in reach, will montior
[2020-12-22 12:25] VITALS: BP 170/95
[2020-12-22 13:21] LABS: ANISOCYTOSIS OCC; LYMPHOCYTES 21 % (15-50); MONOCYTES 13 % (2-11); NEUTROPHILS 64 % (40-80); PLATELET ESTIMATE INCREASED; ROULEAUX OCC
--- NOTE | 2020-12-22 14:00 | NUR ---
PIV leaking, new PIV started in left hand 22G, flushes with ease
[2020-12-22 15:55] VITALS: BP 144/88
[2020-12-22 20:00] VITALS: BP 136/79
[2020-12-23 04:00] VITALS: BP 143/79
[2020-12-23 06:06] LABS: BASOPHILS 0.1 % (0-2); EOSINOPHILS 1.4 % (0-7); HEMATOCRIT 33.1 % (42.0-54.0); IMMATURE GRANULOCYTES 2.3 % (0-5); LYMPHOCYTE ABS# 1.69 10x3/uL (1.32-3.57); LYMPHOCYTES 14.3 % (15-50); MCH 23.9 pg (26.0-34.0); MCHC 30.2 g/dL (31.0-37.0); MCV 79.2 fL (80.0-100.0); MEAN PLATELET VOLUME 8.4 fL (7.4-10.4); MONOCYTES 13.2 % (2-11); NEUTROPHIL ABS# 8.09 10x3/uL (1.78-5.38); NEUTROPHILS 68.7 % (40-80); PLATELET COUNT 421 10x3/uL (130-400); RBC 4.18 10x6/uL (4.20-6.10); RDW 18.3 % (11.5-14.5); WBC 11.8 10x3/uL (4.8-10.8)
[2020-12-23 06:56] LABS: ALBUMIN 2.9 g/dL (3.4-5.0); ALKALINE PHOSPHATASE 48 U/L (30-120); ALT (SGPT) 46 U/L (10-68); BILIRUBIN - TOTAL 0.43 mg/dL (0.2-1.3); CALC OSMOLALITY 276 mosm/kg (275-300); CALCIUM 8.5 mg/dL (8.5-10.1); CARBON DIOXIDE 29.6 mmol/L (21.0-32.0); CHLORIDE - SERUM 103 mmol/L (98-107); CREATININE - SERUM 0.9 mg/dL (0.6-1.3); GLUCOSE 87 mg/dL (74-106); POTASSIUM - SERUM 3.7 mmol/L (3.5-5.1); PROTEIN - SERUM 6.2 g/dL (6.4-8.2); SODIUM 138 mmol/L (136-145); UREA NITROGEN 17 mg/dL (7-18); eGFR NON AFRICAN AMERICAN 90 mL/min (90-120)
[2020-12-23 08:08] VITALS: BP 127/73
--- NOTE | 2020-12-23 11:09 | NUR ---
PATIENT AAOX4 SITTING ON SIDE OF BED, MEDIATIONS ADMINISTERED WITH NO COMPLICATIONS, NO FURTHER NEEDS AT THIS TIME, THEA CARRANZAP
[2020-12-23 11:45] VITALS: BP 157/101
[2020-12-23 16:13] VITALS: BP 158/43
[2020-12-23 18:10] VITALS: BP 147/95
--- NOTE | 2020-12-23 19:10 | NUR ---
PT NOTED TO WALK OUT INTO [place] BY THIS NURSE WHILE THIS NURSE WAS IN ANOTHER PT ROOM. PT YELLED TO ANOTHER PT AND STAFF WHO IS GOING TO GET ME OUT OF HERE. ASKING TO DC. ANOTHER NURSE ASSISTED PT AND I ADVISED THAT NURSE PT DOES NOT HAVE DC ORDERS AT [facility] TIME HE HAS SURGERY FOR PORT SHCEDULED TOMORROW
--- NOTE | 2020-12-23 20:30 | NUR ---
pt reported he showered himself, PIV noted to be lying in trash can pt reports he took it out. New PIV placed by Shanon MORAN 20 gauge right AC
[2020-12-24] VITALS: BP 144/65
[2020-12-24 04:00] VITALS: BP 136/78
--- NOTE | 2020-12-24 05:37 | NUR ---
PT SHOWERED SELF LAST PM, PT WIPED DOWN WITH CHG WIPES AND PLACED IN HOSPITAL GOWN.
[2020-12-24 06:38] LABS: BASOPHILS 0.2 % (0-2); EOSINOPHILS 1.2 % (0-7); HEMATOCRIT 34.8 % (42.0-54.0); HEMOGLOBIN 10.3 g/dL (13.5-17.5); IMMATURE GRANULOCYTES 1.7 % (0-5); LYMPHOCYTE ABS# 1.44 10x3/uL (1.32-3.57); LYMPHOCYTES 13.2 % (15-50); MCH 23.9 pg (26.0-34.0); MCHC 29.6 g/dL (31.0-37.0); MCV 80.7 fL (80.0-100.0); MEAN PLATELET VOLUME 8.9 fL (7.4-10.4); NEUTROPHIL ABS# 7.58 10x3/uL (1.78-5.38); NEUTROPHILS 69.7 % (40-80); PLATELET COUNT 445 10x3/uL (130-400); RBC 4.31 10x6/uL (4.20-6.10); RDW 18.6 % (11.5-14.5); WBC 10.9 10x3/uL (4.8-10.8)
[2020-12-24 06:42] LABS: ALBUMIN 2.9 g/dL (3.4-5.0); ANION GAP 10.2 mmol/L (8-16); BILIRUBIN - TOTAL 0.2 mg/dL (0.2-1.3); CALCIUM 8.8 mg/dL (8.5-10.1); CARBON DIOXIDE 31.4 mmol/L (21.0-32.0); CREATININE - SERUM 1.1 mg/dL (0.6-1.3); POTASSIUM - SERUM 3.6 mmol/L (3.5-5.1); PROTEIN - SERUM 6.2 g/dL (6.4-8.2)
[2020-12-24 07:00] VITALS: BP 137/76
--- NOTE | 2020-12-24 08:31 | NUR ---
PATIENT AAOX4, RESP EVEN AND NON LABORED, NO S/S OF DISTRESS, MEDICATIONS ADMINISTERED WITH A SIP OF WATER DUE TO PATIENT BEING NPO FOR PORT PROCEDURE 12/24/20, NO FURTHER NEEDS AT THIS TIME, EDUARDO CARRANZA
--- NOTE | 2020-12-24 10:11 | NUR ---
I have reviewed this patient and I concur with the Shift Assessment completed by the Licensed Practical Nurse today this shift.
[2020-12-24 11:00] VITALS: BP 132/63
[2020-12-24 14:00] VITALS: BP 134/68
[2020-12-24] MEDS ORDERED: NICODERM CQ1 EAC3 TRANSDERM (15:22)
[2020-12-24] MEDS ORDERED: LEVOFLOXACIN500 MG PO (15:22)
[2020-12-24] MEDS ORDERED: FLORAJEN3 CAPS460 MG PO (15:26)
[2020-12-24] MEDS ORDERED: PULMICORT0.5 MG/21 INH (15:26)
[2020-12-24] MEDS ORDERED: MUCINEX600 MG PO (15:26)
[2020-12-24] MEDS ORDERED: ZYLOPRIM100 MG PO (15:27)
[2020-12-24] MEDS ORDERED: IPRAT-ALBUT 0.5-3 ML INH (15:27)
[2020-12-24] MEDS ORDERED: PERFOROMIS20 MCG/21 UPD (15:28)
--- NOTE | 2020-12-24 16:23 | MORECARE ---
CASE MANAGEMENT DISCHARGE SUMMARY PATIENT: MOHIT COHN UNIT: [id number] ADM DATE: 12/16/20 AGE: 65 : 57 SEX: M ROOM/BED: D.2131 AUTHOR: HORTENCIA,DOC PHYSICIAN: REFERRING PHYSICIAN: GEORGE RAMIREZ MD DATE OF SERVICE: 12/24/20 Case Management Discharge Planning Summary CT Patient Name: MOHIT COHN Attending MD : ALEX RAMIREZ, Medical Record: [id number] Encounter : [id number] Facility : [address] [place] [address] Admission Date : 121:01 Center Discharge Date : [address] [place] [address] Date of : DC Plan ID : [id number] Age/Sex/Martia : 65/ M/S Printed on : 12/24/20 16:22 CT DCP Review Details Anticipated D/C: 12/24/2020 Expected LOS : 8 Case Status : INITIATED - Initial Reviewe: [id number] - Rula Madrigal Initial Review: 12/24/2020 Planned Disposi: 01 - Home or Self Care (Routine Discharge) Final Discharge: - Final Reviewer : : Final Review : Comments CT Entered Date Type Reviewer 12/24/20 15:56 CT Discharge Planning Rula Madrigal Comment CM received discharge orders. CM met with patient to discuss needs, he is alone in the room. He has a pulse ox on his finger. His oxygen saturation is 100% on room air. I have asked for a walk test by RT. He states he is independent with his ADL's and AIDL's. States his PCP is Dr. Ellis and he uses [facility] as his pharmacy. He states a friend will transport him home. He denies need for home health or DME. He signs KAREN for [facility] if oxygen is needed, but he is on room air and his sat is 100% at this time. IMM explained, signed, given, copy placed on . No needs identified at this time. DCP Focus Questions & Answers DCP Screen High Risk Factors: Poor social support DCP Evaluation Patient and/or caregiver agree upon recommended Yes discharge plan? Patient's current cognitive status: *Oriented to person, place, situation, time and present Patient's ability to cope with chronic illness d. No chronic illness Does the patient have the ability to pay for or Yes attain post discharge needs / services? Functional screen assessment: Basic needs can adequately be met by self Physical Status: Independent with ADL's Equipment needed for post hospitalization: None Is there a likelihood that the patient will No require additional services to return to the preadmission environment? Living Arrangements: Home Alone with Support Results of this evaluation have been discussed Patient with: Patient with capacity for self-care or can be Yes cared for in same environment as prior to hospitalization? Living arrangements comments: States "I have friends" Baseline cognitive status: *Oriented to person, place, situation, time and present Physical environment modification needed / No anticipated for discharge: Preadmission facility can/cannot provide post Cannot - at higher level of care than hospital level of care needs: preadmission Medication Management: Patient states can afford medications Pharmacy name(s): [facility] Does Patient have transportation to get home and Yes to follow-up medical appointments when discharged from the hospital? Comments: States "a friend" will take him home Would patient like to participate in any Care Not applicable Coordination programs (if applicable): Equipment in use: Nebulizer Equipment agency name and contact information: DME company is [facility] Abuse/Neglect: None Resources / Services in place: None DCP Re-evaluation Would patient like to participate in any Care Not applicable Coordination programs (if applicable): [facility] MOHIT COHN MR#: [id number] /Age/Sex/[id number] /65/M /S Attending Physician Name: JAMES [id number] Patient Account:[id number] [facility] Page -1 of 1 All edits/amendments must be made on the electronic document DICTATION DATE: 12/24/201621 MATCHING MACHINE OPERATOR: ESTEPHANIA 12/24/201621 RPT#: [id number] DC DATE: STATUS: ADM IN [facility] [address] [place] [address] END OF REPORT
--- NOTE | 2020-12-24 16:46 | MORECARE ---
CASE MANAGEMENT DISCHARGE SUMMARY PATIENT: MOHIT COHN UNIT: [id number] ADM DATE: 12/16/20 AGE: 65 : 57 SEX: M ROOM/BED: D.2131 AUTHOR: HORTENCIA,DOC PHYSICIAN: REFERRING PHYSICIAN: GEORGE RAMIREZ MD DATE OF SERVICE: 12/24/20 Case Management Discharge Planning Summary CT Patient Name: MOHIT COHN Attending MD : ALEX RAMIREZ, Medical Record: [id number] Encounter : [id number] Facility : [address] [place] [address] Medical Admission Date : 121:01 Center Discharge Date : [address] [place] [address] Date of : DC Plan ID : [id number] Age/Sex/Martia : 65/ M/S Printed on : 12/24/20 16:45 CT DCP Review Details Anticipated D/C: 12/24/2020 Expected LOS : 8 Case Status : INITIATED - Initial Reviewe: [id number] - Rula Madrigal Initial Review: 12/24/2020 Planned Disposi: 01 - Home or Self Care (Routine Discharge) Final Discharge: - Final Reviewer : : Final Review : Comments CT Entered Date Type Reviewer 12/24/20 16:27 CT Discharge Planning Rula Madrigal Comment Just returned on room air from radiology. Oxygen saturation is 96% with exertion. Now speaking on the phone for his transportation home. Home today, no needs. 12/24/20 15:56 CT Discharge Planning Rula Madrigal Comment CM received discharge orders. CM met with patient to discuss needs, he is alone in the room. He has a pulse ox on his finger. His oxygen saturation is 100% on room air. I have asked for a walk test by RT. He states he is independent with his ADL's and AIDL's. States his PCP is Dr. Ellis and he uses [facility] as his pharmacy. He states a friend will transport him home. He denies need for home health or DME. He signs KAREN for [facility] if oxygen is needed, but he is on room air and his sat is 100% at this time. IMM explained, signed, given, copy placed on MR. No needs identified at this time. DCP Focus Questions & Answers DCP Screen High Risk Factors: Poor social support DCP Evaluation Patient and/or caregiver agree upon recommended Yes discharge plan? Patient's current cognitive status: *Oriented to person, place, situation, time and present Patient's ability to cope with chronic illness d. No chronic illness Does the patient have the ability to pay for or Yes attain post discharge needs / services? Functional screen assessment: Basic needs can adequately be met by self Physical Status: Independent with ADL's Equipment needed for post hospitalization: None Is there a likelihood that the patient will No require additional services to return to the preadmission environment? Living Arrangements: Home Alone with Support Results of this evaluation have been discussed Patient with: Patient with capacity for self-care or can be Yes cared for in same environment as prior to hospitalization? Living arrangements comments: States "I have friends" Baseline cognitive status: *Oriented to person, place, situation, time and present Physical environment modification needed / No anticipated for discharge: Preadmission facility can/cannot provide post Cannot - at higher level of care than hospital level of care needs: preadmission Medication Management: Patient states can afford medications Pharmacy name(s): [facility] Does Patient have transportation to get home and Yes to follow-up medical appointments when discharged from the hospital? Comments: States "a friend" will take him home Would patient like to participate in any Care Not applicable Coordination programs (if applicable): Equipment in use: [employer] agency name and contact information: DME company is [facility] Abuse/Neglect: None Resources / Services in place: None DCP Re-evaluation Would patient like to participate in any Care Not applicable Coordination programs (if applicable): [facility] MOHIT COHN MR#: [id number] /Age/Sex/Aqpbco2-Epp-01 /65/M /S Attending Physician Name: Mikaela [id number] Patient Account:[id number] [facility] Page -1 of 1 All edits/amendments must be made on the electronic document DICTATION DATE: 12/24/201644 SURVEY TECHNICIAN: ESTEPHANIA 12/24/201644 RPT#: [id number] DC DATE: STATUS: ADM IN [facility] [address] [place] [address] END OF REPORT
[2020-12-25 11:23] VITALS: Ht 170.2 cm; Wt 110.7 kg
--- NOTE | 2020-12-25 20:10 | MORECARE ---
CASE MANAGEMENT DISCHARGE SUMMARY PATIENT: MOHIT COHN UNIT: [id number] ADM DATE: 12/16/20 AGE: 65 : 57 SEX: M ROOM/BED: D.2131 AUTHOR: HORTENCIA,DOC PHYSICIAN: REFERRING PHYSICIAN: GEORGE RAMIREZ MD DATE OF SERVICE: 12/25/20 Case Management Discharge Planning Summary CT Patient Name: MOHIT COHN Attending MD : ALEX RAMIREZ, Medical Record: [id number] Encounter : [id number] Facility : [address] [place] [address] Medical Admission Date : 121:01 Center Discharge Date : 12/24/[address] [place] [address] Date of : DC Plan ID : [id number] Age/Sex/Martia : 65/ M/S Printed on : 12/25/20 20:09 CT DCP Review Details Anticipated D/C: 12/24/2020 Expected LOS : 8 Case Status : INITIATED - Initial Reviewe: [id number] - Rula Madrigal Initial Review: 12/24/2020 Planned Disposi: 01 - Home or Self Care (Routine Discharge) Final Discharge: - Final Reviewer : : Final Review : Comments CT Entered Date Type Reviewer 12/24/20 16:27 CT Discharge Planning Rula Madrigal Comment Just returned on room air from radiology. Oxygen saturation is 96% with exertion. Now speaking on the phone for his transportation home. Home today, no needs. 12/24/20 15:56 CT Discharge Planning Rula Madrigal Comment CM received discharge orders. CM met with patient to discuss needs, he is alone in the room. He has a pulse ox on his finger. His oxygen saturation is 100% on room air. I have asked for a walk test by RT. He states he is independent with his ADL's and AIDL's. States his PCP is Dr. Ellis and he uses [facility] as his pharmacy. He states a friend will transport him home. He denies need for home health or DME. He signs KAREN for [facility] if oxygen is needed, but he is on room air and his sat is 100% at this time. IMM explained, signed, given, copy placed on MR. No needs identified at this time. DCP Focus Questions & Answers DCP Screen High Risk Factors: Poor social support DCP Evaluation Patient and/or caregiver agree upon recommended Yes discharge plan? Patient's current cognitive status: *Oriented to person, place, situation, time and present Patient's ability to cope with chronic illness d. No chronic illness Does the patient have the ability to pay for or Yes attain post discharge needs / services? Functional screen assessment: Basic needs can adequately be met by self Physical Status: Independent with ADL's Equipment needed for post hospitalization: None Is there a likelihood that the patient will No require additional services to return to the preadmission environment? Living Arrangements: Home Alone with Support Results of this evaluation have been discussed Patient with: Patient with capacity for self-care or can be Yes cared for in same environment as prior to hospitalization? Living arrangements comments: States "I have friends" Baseline cognitive status: *Oriented to person, place, situation, time and present Physical environment modification needed / No anticipated for discharge: Preadmission facility can/cannot provide post Cannot - at higher level of care than hospital level of care needs: preadmission Medication Management: Patient states can afford medications Pharmacy name(s): [facility] Does Patient have transportation to get home and Yes to follow-up medical appointments when discharged from the hospital? Comments: States "a friend" will take him home Would patient like to participate in any Care Not applicable Coordination programs (if applicable): Equipment in use: [employer] agency name and contact information: DME company is [facility] Abuse/Neglect: None Resources / Services in place: None DCP Re-evaluation Would patient like to participate in any Care Not applicable Coordination programs (if applicable): [facility] MOHIT COHN MR#: [id number] /Age/Sex/Bymbnv1-Xbi-35 /65/M /S Attending Physician Name: Mkiaela [id number] Patient Account:[id number] [facility] Page -1 of 1 All edits/amendments must be made on the electronic document DICTATION DATE: 12/25/202008 [employer] SUPERVISOR: ESTEPHANIA 12/25/202008 RPT#: [id number] DC DATE:12/24/20 STATUS: DIS IN [facility] [address] [place] [address] END OF REPORT
--- NOTE | 2020-12-26 19:07 | MORECARE ---
CASE MANAGEMENT DISCHARGE SUMMARY PATIENT: MOHIT COHN UNIT: [id number] ADM DATE: 12/16/20 AGE: 65 : 57 SEX: M ROOM/BED: D.2131 AUTHOR: HORTENCIA,DOC PHYSICIAN: REFERRING PHYSICIAN: GEORGE RAMIREZ MD DATE OF SERVICE: 12/26/20 Case Management Discharge Planning Summary CT Patient Name: MOHIT COHN Attending MD : ALEX RAMIREZ, Medical Record: [id number] Encounter : [id number] Facility : [address] [place] [address] Medical Admission Date : 121:01 Center Discharge Date : 12/24/[address] [place] [address] Date of : DC Plan ID : [id number] Age/Sex/Martia : 65/ M/S Printed on : 12/26/20 19:06 CT DCP Review Details Anticipated D/C: 12/24/2020 Expected LOS : 8 Case Status : INITIATED - Initial Reviewe: [id number] - Rula Madrigal Initial Review: 12/24/2020 Planned Disposi: 01 - Home or Self Care (Routine Discharge) Final Discharge: - Final Reviewer : : Final Review : Comments CT Entered Date Type Reviewer 12/24/20 16:27 CT Discharge Planning Rula Madrigal Comment Just returned on room air from radiology. Oxygen saturation is 96% with exertion. Now speaking on the phone for his transportation home. Home today, no needs. 12/24/20 15:56 CT Discharge Planning Rula Madrigal Comment CM received discharge orders. CM met with patient to discuss needs, he is alone in the room. He has a pulse ox on his finger. His oxygen saturation is 100% on room air. I have asked for a walk test by RT. He states he is independent with his ADL's and AIDL's. States his PCP is Dr. Ellis and he uses [facility] as his pharmacy. He states a friend will transport him home. He denies need for home health or DME. He signs KAREN for [facility] if oxygen is needed, but he is on room air and his sat is 100% at this time. IMM explained, signed, given, copy placed on MR. No needs identified at this time. DCP Focus Questions & Answers DCP Screen High Risk Factors: Poor social support DCP Evaluation Patient gives permission to discuss discharge Magdaleno Cohn - danielleer [phone] plans with: (name, relationship and number) Patient and/or caregiver agree upon recommended Yes discharge plan? Patient's current cognitive status: *Oriented to person, place, situation, time and present Patient's ability to cope with chronic illness d. No chronic illness Does the patient have the ability to pay for or Yes attain post discharge needs / services? Functional screen assessment: Basic needs can adequately be met by self Physical Status: Independent with ADL's Equipment needed for post hospitalization: None Is there a likelihood that the patient will No require additional services to return to the preadmission environment? Living Arrangements: Home Alone with Support Results of this evaluation have been discussed Patient with: Patient with capacity for self-care or can be Yes cared for in same environment as prior to hospitalization? Living arrangements comments: States "I have friends" Baseline cognitive status: *Oriented to person, place, situation, time and present Physical environment modification needed / No anticipated for discharge: Preadmission facility can/cannot provide post Cannot - at higher level of care than hospital level of care needs: preadmission Medication Management: Patient states can afford medications Pharmacy name(s): [facility] Does Patient have transportation to get home and Yes to follow-up medical appointments when discharged from the hospital? Comments: States "a friend" will take him home Would patient like to participate in any Care Not applicable Coordination programs (if applicable): Equipment in use: [employer] agency name and contact information: DME company is [facility] Abuse/Neglect: None Resources / Services in place: None DCP Re-evaluation Would patient like to participate in any Care Not applicable Coordination programs (if applicable): [facility] MOHIT COHN MR#: [id number] /Age/Sex/Dbdsnh6-Uui-19 /65/M /S Attending Physician Name: Mikaela [id number] Patient Account:[id number] [facility] Page -1 of 1 All edits/amendments must be made on the electronic document DICTATION DATE: 12/26/201905 MEDICAL CODING AUDITOR: ESTEPHANIA 12/26/201905 RPT#: [id number] DC DATE:12/24/20 STATUS: DIS IN [facility] [address] [place] [address] END OF REPORT
== END 2020-12-24 17:13 | disposition home or self-care (01) | DRG 180 ==
LOC: D.ER 15:45 → D.M2 21:01
PROVIDERS: Emergency Medicine; Internal Medicine Pulmonary Disease; ADMIT Family Medicine; ATTEND Family Medicine
PROC: 0BB78ZX Excision of Left Main Bronchus, Via Natural or Artificial Opening Endoscopic, Diagnostic (ICD-10-PCS; 2020-12-18)
PROC: 0B9J8ZX Drainage of Left Lower Lung Lobe, Via Natural or Artificial Opening Endoscopic, Diagnostic (ICD-10-PCS; 2020-12-18)
PROC: 0BBB8ZX Excision of Left Lower Lobe Bronchus, Via Natural or Artificial Opening Endoscopic, Diagnostic (ICD-10-PCS; principal; 2020-12-18 10:45)
PROC: 0JH63WZ Insertion of Totally Implantable Vascular Access Device into Chest Subcutaneous Tissue and Fascia, Percutaneous Approach (ICD-10-PCS; 2020-12-24)
PROC: 05H533Z Insertion of Infusion Device into Right Subclavian Vein, Percutaneous Approach (ICD-10-PCS; 2020-12-24)
PROC: B5161ZA Fluoroscopy of Right Subclavian Vein using Low Osmolar Contrast, Guidance (ICD-10-PCS; 2020-12-24)
DX: C7A.090 Malignant carcinoid tumor of the bronchus and lung (principal); J18.8 Other pneumonia, unspecified organism; F17.203 Nicotine dependence unspecified, with withdrawal; E87.1 Hypo-osmolality and hyponatremia; J44.1 Chronic obstructive pulmonary disease with (acute) exacerbation; J44.0 Chronic obstructive pulmonary disease with (acute) lower respiratory infection; R59.0 Localized enlarged lymph nodes; Z20.822 Contact with and (suspected) exposure to COVID-19; D64.9 Anemia, unspecified; Z86.73 Personal history of transient ischemic attack (TIA), and cerebral infarction without residual deficits; I10 Essential (primary) hypertension; E78.5 Hyperlipidemia, unspecified; N40.0 Benign prostatic hyperplasia without lower urinary tract symptoms; G89.29 Other chronic pain; M54.9 Dorsalgia, unspecified; E66.01 Morbid (severe) obesity due to excess calories; Z68.39 Body mass index [BMI] 39.0-39.9, adult

== ENCOUNTER → 2021-01-25 12:48 | Outpatient (CLI) | payer MEDICARE ==
[2020-12-25 11:23] VITALS: BMI 38.2
[~2021-01-25 12:48] MED LIST changes: +FLORAJEN3 CAPS460 MG PO; +IPRAT-ALBUT 0.5-3 ML INH; +LEVOFLOXACIN500 MG PO; +MUCINEX600 MG PO; +NICODERM CQ1 EAC3 TRANSDERM; +PERFOROMIS20 MCG/21 UPD; +PULMICORT0.5 MG/21 INH; +ZYLOPRIM100 MG PO
== END | disposition home or self-care (01) ==
LOC: D.MRI 12:48
PROVIDERS: ATTEND Internal Medicine Hematology & Oncology
DX: R41.3 Other amnesia (principal); C34.90 Malignant neoplasm of unspecified part of unspecified bronchus or lung

== ENCOUNTER → 2021-03-12 11:35 | Outpatient (CLI) | payer MEDICARE ==
[2020-12-25 11:23] VITALS: BMI 38.2
== END | disposition home or self-care (01) ==
LOC: D.CT 11:35
PROVIDERS: ATTEND Internal Medicine Hematology & Oncology
DX: C34.90 Malignant neoplasm of unspecified part of unspecified bronchus or lung (principal)